=== PATIENT | male | born 1990 | race Caucasian/White ===

== ENCOUNTER 2019-04-17 06:11 | Inpatient (IN) | payer OTHER ==
[~2019-04-17] VITALS: Ht 195.6 cm; Wt 158.8 kg
[2019-04-17] MEDS ORDERED: IBUP800 PO (06:37)
[2019-04-17] MEDS ORDERED: CYCL100 PO ×2 (06:37)
[2019-04-17 08:10] LABS: BASOPHILS ABSOLUTE AUTO 0.07 K/mm3 (0.00-0.23); BASOPHILS PERCENT AUTO 0 % (0-2); EOSINOPHILS ABSOLUTE AUTO 0.21 K/mm3 (0.00-0.68); EOSINOPHILS PERCENT AUTO 1 % (0-6); Hematocrit 43.4 % (37.0-53.0); Hemoglobin 14.3 g/dL (13.5-17.5); IMMATURE GRAN ABSOLUTE AUTO 0.13 K/mm3 (0.00-0.10); IMMATURE GRAN PERCENT AUTO 1 % (0-1); LYMPHOCYTES PERCENT AUTO 9 % (21-46); MONOCYTES ABSOLUTE AUTO 1.02 K/mm3 (0.16-1.47); MONOCYTES PERCENT AUTO 6 % (4-13); Mean Corpuscular HGB Conc 32.9 g/dL (31.5-36.5); Mean Corpuscular Volume 85 fL (80-100); Mean Platelet Volume 9.4 fL (9.1-12.4); NEUTROPHILS ABSOLUTE AUTO 13.42 K/mm3 (1.96-9.15); NEUTROPHILS PERCENT AUTO 83 % (41-73); Platelet Count 414 K/mm3 (150-400); RDW Coefficient Variation 12.7 % (11.7-14.2); RDW Standard Deviation 39.4 fL (35.1-46.3); Red Blood Cell Count 5.11 M/mm3 (4.30-5.90); White Blood Cell Count 16.25 K/mm3 (4.00-11.30)
[2019-04-17 08:33] LABS: Alanine Aminotransfer (ALT/SGP 25 U/L (12-78); Albumin, Blood 3.2 g/dL (3.4-5.0); Albumin/Globulin Ratio 0.6 (0.8-1.8); Alk Phos 115 U/L (50-136); Anion Gap 8 mmol/L (6-16); Aspartate Aminotrans (AST/SGOT 15 U/L (12-37); Bilirubin, Total 0.4 mg/dL (0.1-1.0); Blood Urea Nitrogen 11 mg/dL (8-24); Bun/Creatinine Ratio 16.2 (12.0-20.0); CO2, Blood 23 mmol/L (21-32); Calcium, Blood 9.2 mg/dL (8.5-10.1); Chloride, Blood 106 mmol/L (98-108); Creatinine, Blood 0.68 mg/dL (0.60-1.20); Globulin, Blood 5.7 g/dL (2.2-4.0); Glomerular Filtration Rate >60 (60-); Glucose, Blood 116 mg/dL (70-99); Potassium, Blood 4.1 mmol/L (3.5-5.5); Sodium, Blood 137 mmol/L (136-145); Total Protein, Blood 8.9 g/dL (6.4-8.2)
--- NOTE | 2019-04-17 17:23 | NUR ---
ADMISSION/SHIFT SUMMARY PATIENT ADMITTED TO FLOOR AT 1005. PATIENT A&O X4, ABLE TO AMBULATE FROM WHEELCHAIR TO BED. HE IS IN A LOT OF PAIN WHEN WALKING OR LLE IS DOWN. PATIENT SETTLED IN BED AND LLE ELEVATED AROUND LEVEL OF HEART, PAIN IMPROVED. LLE PAIN IS THROBBING, RATED AT A 3-6 OUT OF 10 TODAY. TYLENOL AND IBUPROFEN GIVEN. PATIENT HAS NO OTHER SIGNIFICANT HISTORY OR PHYSICAL ISSUES BESIDES ADMITTING DIAGNOSIS. LOWER LEFT LEG IS CURRENTLY WRAPPED WITH PETROLEUM DRSG, ABD, AND KERLEX. THE ULCERATIONS ARE ON ALL SIDES OF THE LEG EXCEPT THE BACK. PHOTOS TAKEN AND PRINTED IN CHART.
[2019-04-18 04:55] LABS: BASOPHILS ABSOLUTE AUTO 0.05 K/mm3 (0.00-0.23); BASOPHILS PERCENT AUTO 0 % (0-2); EOSINOPHILS ABSOLUTE AUTO 0.28 K/mm3 (0.00-0.68); EOSINOPHILS PERCENT AUTO 2 % (0-6); Hematocrit 37.6 % (37.0-53.0); Hemoglobin 12.5 g/dL (13.5-17.5); IMMATURE GRAN PERCENT AUTO 1 % (0-1); LYMPHOCYTES ABSOLUTE AUTO 2.63 K/mm3 (0.84-5.20); LYMPHOCYTES PERCENT AUTO 18 % (21-46); MONOCYTES PERCENT AUTO 7 % (4-13); Mean Corpuscular HGB 28.7 pg (26.0-34.0); Mean Corpuscular HGB Conc 33.2 g/dL (31.5-36.5); Mean Corpuscular Volume 86 fL (80-100); Mean Platelet Volume 9.3 fL (9.1-12.4); NEUTROPHILS ABSOLUTE AUTO 10.26 K/mm3 (1.96-9.15); NEUTROPHILS PERCENT AUTO 72 % (41-73); Platelet Count 357 K/mm3 (150-400); RDW Coefficient Variation 12.7 % (11.7-14.2); RDW Standard Deviation 40.3 fL (35.1-46.3); Red Blood Cell Count 4.36 M/mm3 (4.30-5.90); White Blood Cell Count 14.32 K/mm3 (4.00-11.30)
[2019-04-18 05:18] LABS: Alanine Aminotransfer (ALT/SGP 30 U/L (12-78); Albumin, Blood 2.6 g/dL (3.4-5.0); Albumin/Globulin Ratio 0.6 (0.8-1.8); Alk Phos 92 U/L (50-136); Anion Gap 8 mmol/L (6-16); Aspartate Aminotrans (AST/SGOT 17 U/L (12-37); Bilirubin, Total 0.4 mg/dL (0.1-1.0); Blood Urea Nitrogen 10 mg/dL (8-24); Bun/Creatinine Ratio 14.3 (12.0-20.0); CO2, Blood 24 mmol/L (21-32); Calcium, Blood 8.6 mg/dL (8.5-10.1); Chloride, Blood 107 mmol/L (98-108); Globulin, Blood 4.6 g/dL (2.2-4.0); Glomerular Filtration Rate >60 (60-); Glucose, Blood 108 mg/dL (70-99); Potassium, Blood 3.9 mmol/L (3.5-5.5); Sodium, Blood 139 mmol/L (136-145); Total Protein, Blood 7.2 g/dL (6.4-8.2)
--- NOTE | 2019-04-18 05:35 | NUR ---
SUMMARY: A/OX4, SBA OOB BUT USED URINAL INDEPENDENTLY AND WASN'T UP THIS SHIFT. HE REPOSITIONS HIMSELF AND SPECIFIES NEEDS. PT REQUIRED IBUPROFEN X2 DOSES FOR TOLERABLE RELIEF OF LLE PAIN AND REFUSED ADDITIONAL PRN PAIN MEDS. 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 STEROIDS AND IV ABX BEING RECIEVED. VERY SCANT AMT OF DRAINAGE NOTED BUT DAILY DX DUE TO BE CHANGED TODAY AND PT REQUESTED IT BE LEFT ALONE TONIGHT, UNABLE TO COLLECT WOUND CX RESULT. DERMATOLOGY CX NEEDS CALLED TODAY, WILL ENSURE DAY STAFF ARE AWARE. IVF BOLUS COMPLETED AND NOW RUNNING AT TK. NO ACUTE CHANGES, VSS/AFEBRILE. WCTM/REPORT TO DAY RN.
--- NOTE | 2019-04-18 10:34 | NUR ---
SPOKE WITH DERMATOLOGY OFFICE, DR SANTIAGO AGREED TO COME IN AND CONSULT PATIENT.
[2019-04-18] MEDS ORDERED: ACET325 PO (15:56)
[2019-04-18] MEDS ORDERED: LISI20 PO (15:57)
[2019-04-18] MEDS ORDERED: Florastor250 MG PO (15:59)
[2019-04-18] MEDS ORDERED: Prednisone10 MG PO (15:59)
[2019-04-18] MEDS ORDERED: DOXY100 PO (16:00)
--- NOTE | 2019-04-18 17:54 | NUR ---
PT DISCHARGED HOME, LEFT UNIT VIA WHEELCHAIR. WENT OVER DISCHARGE INSTRUCTIONS. REMOVED IV. NO QUESTIONS AT THIS TIME.
== END 2019-04-18 16:29 | disposition home or self-care (01) | DRG 603 ==
LOC: ER 06:11 → MEDS 09:59 → ENPENDDIS 04-18 15:21 → MEDS 04-18 16:29
PROVIDERS: Emergency Medicine; ADMIT Family Medicine
DX: L88 Pyoderma gangrenosum (principal); R65.10 Systemic inflammatory response syndrome (SIRS) of non-infectious origin without acute organ dysfunction; Z68.41 Body mass index [BMI] 40.0-44.9, adult; E66.01 Morbid (severe) obesity due to excess calories; I10 Essential (primary) hypertension; I87.2 Venous insufficiency (chronic) (peripheral); F17.210 Nicotine dependence, cigarettes, uncomplicated; Z91.14 Patient's other noncompliance with medication regimen; Z86.14 Personal history of Methicillin resistant Staphylococcus aureus infection
CPT/HCPCS: 36415; 80053; 83605; 85025; 87070; 87075; 87077; 87147; 87186; 87205; 90686; 96365; 96367; 99284-25; A9270; J0690; J1650; J7030; J7050; J7502; J7512

== ENCOUNTER → 2020-05-21 | Outpatient (CLI) | payer OTHER ==
[~2020-05-21] MED LIST: ACET325 PO; CYCL100 PO; DOXY100 PO; Florastor250 MG PO; IBUP800 PO; LISI20 PO; Prednisone10 MG PO
== END | disposition home or self-care (01) ==
LOC: LAB 17:22 → LAB SHORT 17:22
DX: L08.0 Pyoderma (principal)
CPT/HCPCS: 87070; 87075; 87205

== ENCOUNTER → 2020-12-03 | Outpatient (CLI) | payer SELFPAY | END | disposition home or self-care (01) | LOC: PLD 18:21 → LAB SHORT 18:21 | DX: L88 Pyoderma gangrenosum (principal) | CPT/HCPCS: 87070; 87205 ==

== ENCOUNTER → 2021-03-10 | Outpatient (CLI) | payer SELFPAY | END | disposition home or self-care (01) | LOC: LAB SHORT 14:30 | DX: L08.0 Pyoderma (principal) | CPT/HCPCS: 87070; 87205 ==

== ENCOUNTER 2021-08-26 00:28 | Day surgery (SDC) | payer OTHER | END 2021-08-26 11:21 | disposition home or self-care (01) | LOC: ATC 00:28 | DX: L73.2 Hidradenitis suppurativa (principal) | CPT/HCPCS: J7050; Q5103 ==

== ENCOUNTER 2021-09-09 04:48 | Day surgery (SDC) | payer OTHER ==
[2021-09-09] MEDS ORDERED: INFLECTRA100 MG IV (13:52)
== END 2021-09-09 16:22 | disposition home or self-care (01) ==
LOC: ATC 04:48
DX: L73.2 Hidradenitis suppurativa (principal)
CPT/HCPCS: 96413; 96415; J7050; Q5103

== ENCOUNTER 2021-11-25 02:02 | Day surgery (SDC) | payer OTHER ==
[~2021-11-25] VITALS: Wt 142.0 kg
[~2021-11-25 02:02] MED LIST changes: +INFLECTRA100 MG IV
== END 2021-11-25 16:45 | disposition home or self-care (01) ==
LOC: ATC 02:02
DX: L73.2 Hidradenitis suppurativa (principal); L88 Pyoderma gangrenosum
CPT/HCPCS: 96413; 96415; J7050; Q5103

== ENCOUNTER 2022-01-27 00:58 | Day surgery (SDC) | payer OTHER ==
[~2022-01-27] VITALS: Wt 144.0 kg
== END 2022-01-27 16:45 | disposition home or self-care (01) ==
LOC: ATC 00:58
DX: L73.2 Hidradenitis suppurativa (principal)
CPT/HCPCS: 96413; 96415; J7050; Q5103

== ENCOUNTER 2022-04-02 00:11 | Day surgery (SDC) | payer OTHER ==
[~2022-04-02] VITALS: Wt 142.9 kg
== END 2022-04-02 16:04 | disposition home or self-care (01) ==
LOC: ATC 00:11
DX: L88 Pyoderma gangrenosum (principal)
CPT/HCPCS: J7050; Q5103

== ENCOUNTER 2022-08-14 00:18 | Day surgery (SDC) | payer OTHER ==
--- NOTE | 2022-08-10 08:30 | NUR ---
PT CALLED THIS MORNING AND CANCELLED HIS [facility] APPOINTMENT FOR TODAY.
[2022-08-14 14:43] LABS: BASOPHILS ABSOLUTE AUTO 0.06 K/mm3 (0.00-0.23); BASOPHILS PERCENT AUTO 1 % (0-2); EOSINOPHILS ABSOLUTE AUTO 0.48 K/mm3 (0.00-0.68); EOSINOPHILS PERCENT AUTO 5 % (0-6); Hematocrit 44.6 % (37.0-53.0); Hemoglobin 15.4 g/dL (13.5-17.5); IMMATURE GRAN ABSOLUTE AUTO 0.03 K/mm3 (0.00-0.10); IMMATURE GRAN PERCENT AUTO 0 % (0-1); LYMPHOCYTES ABSOLUTE AUTO 2.23 K/mm3 (0.84-5.20); LYMPHOCYTES PERCENT AUTO 23 % (21-46); MONOCYTES ABSOLUTE AUTO 1.01 K/mm3 (0.16-1.47); MONOCYTES PERCENT AUTO 10 % (4-13); Mean Corpuscular HGB 29.4 pg (26.0-34.0); Mean Corpuscular HGB Conc 34.5 g/dL (31.5-36.5); Mean Corpuscular Volume 85 fL (80-100); Mean Platelet Volume 9.4 fL (9.1-12.4); NEUTROPHILS ABSOLUTE AUTO 6.02 K/mm3 (1.96-9.15); NEUTROPHILS PERCENT AUTO 61 % (41-73); Platelet Count 280 K/mm3 (150-400); RDW Coefficient Variation 12.8 % (11.7-14.2); RDW Standard Deviation 39.8 fL (35.1-46.3); Red Blood Cell Count 5.23 M/mm3 (4.30-5.90); White Blood Cell Count 9.83 K/mm3 (4.00-11.30)
[2022-08-14 15:02] LABS: Albumin, Blood 3.4 g/dL (3.4-5.0); Albumin/Globulin Ratio 0.7 (0.8-1.8); Bilirubin, Total 0.2 mg/dL (0.1-1.0); Bun/Creatinine Ratio 28.8 (12.0-20.0); Calcium, Blood 9.1 mg/dL (8.5-10.1); Creatinine, Blood 0.66 mg/dL (0.60-1.20); Globulin, Blood 4.6 g/dL (2.2-4.0); Potassium, Blood 4.1 mmol/L (3.5-5.5)
== END 2022-08-14 16:50 | disposition home or self-care (01) ==
LOC: ATC 00:18
PROVIDERS: Dermatology
DX: L88 Pyoderma gangrenosum (principal)
CPT/HCPCS: 80053; 85025; J7050; Q5103

== ENCOUNTER 2022-10-09 01:16 | Day surgery (SDC) | payer OTHER ==
[2022-10-09 13:43] VITALS: BP 140/86
[2022-10-09 14:53] LABS: BASOPHILS ABSOLUTE AUTO 0.05 K/mm3 (0.00-0.23); BASOPHILS PERCENT AUTO 0 % (0-2); EOSINOPHILS PERCENT AUTO 3 % (0-6); Hematocrit 42.6 % (37.0-53.0); Hemoglobin 14.6 g/dL (13.5-17.5); IMMATURE GRAN ABSOLUTE AUTO 0.03 K/mm3 (0.00-0.10); IMMATURE GRAN PERCENT AUTO 0 % (0-1); LYMPHOCYTES ABSOLUTE AUTO 2.93 K/mm3 (0.84-5.20); LYMPHOCYTES PERCENT AUTO 26 % (21-46); MONOCYTES ABSOLUTE AUTO 0.81 K/mm3 (0.16-1.47); MONOCYTES PERCENT AUTO 7 % (4-13); Mean Corpuscular HGB 28.8 pg (26.0-34.0); Mean Corpuscular HGB Conc 34.3 g/dL (31.5-36.5); Mean Corpuscular Volume 84 fL (80-100); Mean Platelet Volume 9.8 fL (9.1-12.4); NEUTROPHILS ABSOLUTE AUTO 7.33 K/mm3 (1.96-9.15); NEUTROPHILS PERCENT AUTO 64 % (41-73); Platelet Count 272 K/mm3 (150-400); RDW Coefficient Variation 12.7 % (11.7-14.2); RDW Standard Deviation 38.5 fL (35.1-46.3); Red Blood Cell Count 5.07 M/mm3 (4.30-5.90); White Blood Cell Count 11.45 K/mm3 (4.00-11.30)
[2022-10-09 15:32] LABS: Albumin, Blood 3.9 g/dL (3.4-5.0); Albumin/Globulin Ratio 0.9 (0.8-1.8); Bilirubin, Total 0.6 mg/dL (0.1-1.0); Bun/Creatinine Ratio 15.4 (12.0-20.0); Calcium, Blood 9.1 mg/dL (8.5-10.1); Creatinine, Blood 0.71 mg/dL (0.60-1.20); Globulin, Blood 4.3 g/dL (2.2-4.0); Potassium, Blood 3.7 mmol/L (3.5-5.5); Total Protein, Blood 8.2 g/dL (6.4-8.2)
== END 2022-10-09 16:52 | disposition home or self-care (01) ==
LOC: ATC 01:16
PROVIDERS: Dermatology
DX: L88 Pyoderma gangrenosum (principal)
CPT/HCPCS: 80053; 85025; 96413; 96415; J7050; Q5103

== ENCOUNTER 2022-12-09 03:06 | Day surgery (SDC) | payer OTHER ==
[2022-12-09 08:20] VITALS: BP 152/92
[2022-12-09 09:05] LABS: BASOPHILS ABSOLUTE AUTO 0.04 K/mm3 (0.00-0.23); BASOPHILS PERCENT AUTO 1 % (0-2); EOSINOPHILS ABSOLUTE AUTO 0.36 K/mm3 (0.00-0.68); EOSINOPHILS PERCENT AUTO 4 % (0-6); Hematocrit 42.1 % (37.0-53.0); Hemoglobin 14.8 g/dL (13.5-17.5); IMMATURE GRAN ABSOLUTE AUTO 0.03 K/mm3 (0.00-0.10); IMMATURE GRAN PERCENT AUTO 0 % (0-1); LYMPHOCYTES ABSOLUTE AUTO 2.89 K/mm3 (0.84-5.20); LYMPHOCYTES PERCENT AUTO 33 % (21-46); MONOCYTES ABSOLUTE AUTO 0.58 K/mm3 (0.16-1.47); MONOCYTES PERCENT AUTO 7 % (4-13); Mean Corpuscular HGB 29.6 pg (26.0-34.0); Mean Corpuscular HGB Conc 35.2 g/dL (31.5-36.5); Mean Corpuscular Volume 84 fL (80-100); Mean Platelet Volume 9.5 fL (9.1-12.4); NEUTROPHILS ABSOLUTE AUTO 4.79 K/mm3 (1.96-9.15); NEUTROPHILS PERCENT AUTO 55 % (41-73); Platelet Count 268 K/mm3 (150-400); RDW Coefficient Variation 12.4 % (11.7-14.2); RDW Standard Deviation 37.7 fL (35.1-46.3); White Blood Cell Count 8.69 K/mm3 (4.00-11.30)
[2022-12-09 09:26] LABS: Albumin, Blood 3.6 g/dL (3.4-5.0); Albumin/Globulin Ratio 0.8 (0.8-1.8); Bilirubin, Total 0.4 mg/dL (0.1-1.0); Calcium, Blood 8.8 mg/dL (8.5-10.1); Creatinine, Blood 0.68 mg/dL (0.60-1.20); Globulin, Blood 4.3 g/dL (2.2-4.0); Potassium, Blood 4.1 mmol/L (3.5-5.5); Total Protein, Blood 7.9 g/dL (6.4-8.2)
== END 2022-12-09 11:11 | disposition home or self-care (01) ==
LOC: ATC 03:06
PROVIDERS: Dermatology
DX: L88 Pyoderma gangrenosum (principal)
CPT/HCPCS: 80053; 85025; 96413; 96415; J7050; Q5103

== ENCOUNTER 2023-02-17 02:31 | Day surgery (SDC) | payer OTHER ==
[2023-02-17 14:04] VITALS: BP 160/90
[2023-02-17 14:32] LABS: BASOPHILS ABSOLUTE AUTO 0.05 K/mm3 (0.00-0.23); BASOPHILS PERCENT AUTO 0 % (0-2); EOSINOPHILS ABSOLUTE AUTO 0.34 K/mm3 (0.00-0.68); EOSINOPHILS PERCENT AUTO 3 % (0-6); Hematocrit 42.3 % (37.0-53.0); Hemoglobin 14.7 g/dL (13.5-17.5); IMMATURE GRAN ABSOLUTE AUTO 0.05 K/mm3 (0.00-0.10); IMMATURE GRAN PERCENT AUTO 0 % (0-1); LYMPHOCYTES ABSOLUTE AUTO 2.16 K/mm3 (0.84-5.20); LYMPHOCYTES PERCENT AUTO 18 % (21-46); MONOCYTES ABSOLUTE AUTO 0.74 K/mm3 (0.16-1.47); MONOCYTES PERCENT AUTO 6 % (4-13); Mean Corpuscular HGB 29.6 pg (26.0-34.0); Mean Corpuscular HGB Conc 34.8 g/dL (31.5-36.5); Mean Corpuscular Volume 85 fL (80-100); NEUTROPHILS ABSOLUTE AUTO 8.72 K/mm3 (1.96-9.15); NEUTROPHILS PERCENT AUTO 72 % (41-73); Platelet Count 304 K/mm3 (150-400); RDW Coefficient Variation 12.8 % (11.7-14.2); RDW Standard Deviation 39.6 fL (35.1-46.3); Red Blood Cell Count 4.97 M/mm3 (4.30-5.90); White Blood Cell Count 12.06 K/mm3 (4.00-11.30)
[2023-02-17 15:15] LABS: Albumin, Blood 3.2 g/dL (3.4-5.0); Albumin/Globulin Ratio 0.8 (0.8-1.8); Bilirubin, Total 0.3 mg/dL (0.1-1.0); Bun/Creatinine Ratio 19.7 (12.0-20.0); Calcium, Blood 8.6 mg/dL (8.5-10.1); Creatinine, Blood 0.71 mg/dL (0.60-1.20); Globulin, Blood 4.2 g/dL (2.2-4.0); Potassium, Blood 3.9 mmol/L (3.5-5.5); Total Protein, Blood 7.4 g/dL (6.4-8.2)
== END 2023-02-17 16:50 | disposition home or self-care (01) ==
LOC: ATC 02:31
PROVIDERS: Dermatology
DX: L88 Pyoderma gangrenosum (principal)
CPT/HCPCS: 80053; 85025; 96413; 96415; J7050; Q5103

== ENCOUNTER 2023-04-15 03:18 | Day surgery (SDC) | payer OTHER ==
[2023-04-15 13:39] VITALS: BP 149/85
[2023-04-15 13:48] VITALS: BP 149/85
[2023-04-15 14:11] LABS: BASOPHILS ABSOLUTE AUTO 0.06 K/mm3 (0.00-0.23); BASOPHILS PERCENT AUTO 1 % (0-2); EOSINOPHILS ABSOLUTE AUTO 0.32 K/mm3 (0.00-0.68); EOSINOPHILS PERCENT AUTO 3 % (0-6); Hematocrit 44.3 % (37.0-53.0); IMMATURE GRAN ABSOLUTE AUTO 0.04 K/mm3 (0.00-0.10); IMMATURE GRAN PERCENT AUTO 0 % (0-1); LYMPHOCYTES PERCENT AUTO 27 % (21-46); MONOCYTES ABSOLUTE AUTO 0.73 K/mm3 (0.16-1.47); MONOCYTES PERCENT AUTO 8 % (4-13); Mean Corpuscular HGB 29.1 pg (26.0-34.0); Mean Corpuscular HGB Conc 33.9 g/dL (31.5-36.5); Mean Corpuscular Volume 86 fL (80-100); Mean Platelet Volume 9.6 fL (9.1-12.4); NEUTROPHILS ABSOLUTE AUTO 5.83 K/mm3 (1.96-9.15); NEUTROPHILS PERCENT AUTO 61 % (41-73); Platelet Count 273 K/mm3 (150-400); RDW Coefficient Variation 12.6 % (11.7-14.2); RDW Standard Deviation 39.7 fL (35.1-46.3); Red Blood Cell Count 5.15 M/mm3 (4.30-5.90); White Blood Cell Count 9.58 K/mm3 (4.00-11.30)
[2023-04-15 14:30] LABS: Albumin, Blood 3.5 g/dL (3.4-5.0); Albumin/Globulin Ratio 0.8 (0.8-1.8); Bilirubin, Total 0.3 mg/dL (0.1-1.0); Bun/Creatinine Ratio 13.5 (12.0-20.0); Calcium, Blood 8.7 mg/dL (8.5-10.1); Creatinine, Blood 0.74 mg/dL (0.60-1.20); Globulin, Blood 4.5 g/dL (2.2-4.0)
== END 2023-04-15 16:11 | disposition home or self-care (01) ==
LOC: ATC 03:18
PROVIDERS: Dermatology
DX: L88 Pyoderma gangrenosum (principal); Z80.0 Family history of malignant neoplasm of digestive organs
CPT/HCPCS: 36415; 80053; 85025; 96413; 96415; J7050; Q5103

== ENCOUNTER 2023-07-06 00:30 | Day surgery (SDC) | payer OTHER ==
[2023-07-06 15:35] VITALS: BP 152/88
[2023-07-06 16:16] LABS: BASOPHILS ABSOLUTE AUTO 0.05 K/mm3 (0.00-0.23); BASOPHILS PERCENT AUTO 0 % (0-2); EOSINOPHILS ABSOLUTE AUTO 0.47 K/mm3 (0.00-0.68); EOSINOPHILS PERCENT AUTO 4 % (0-6); Hematocrit 40.1 % (37.0-53.0); Hemoglobin 13.9 g/dL (13.5-17.5); IMMATURE GRAN ABSOLUTE AUTO 0.07 K/mm3 (0.00-0.10); IMMATURE GRAN PERCENT AUTO 1 % (0-1); LYMPHOCYTES ABSOLUTE AUTO 2.49 K/mm3 (0.84-5.20); LYMPHOCYTES PERCENT AUTO 19 % (21-46); MONOCYTES ABSOLUTE AUTO 0.88 K/mm3 (0.16-1.47); MONOCYTES PERCENT AUTO 7 % (4-13); Mean Corpuscular HGB 29.3 pg (26.0-34.0); Mean Corpuscular HGB Conc 34.7 g/dL (31.5-36.5); Mean Corpuscular Volume 85 fL (80-100); Mean Platelet Volume 9.2 fL (9.1-12.4); NEUTROPHILS ABSOLUTE AUTO 8.99 K/mm3 (1.96-9.15); NEUTROPHILS PERCENT AUTO 70 % (41-73); Platelet Count 292 K/mm3 (150-400); RDW Coefficient Variation 12.5 % (11.7-14.2); RDW Standard Deviation 38.7 fL (35.1-46.3); Red Blood Cell Count 4.74 M/mm3 (4.30-5.90); White Blood Cell Count 12.95 K/mm3 (4.00-11.30)
[2023-07-06 16:45] LABS: Albumin, Blood 3.2 g/dL (3.4-5.0); Albumin/Globulin Ratio 0.7 (0.8-1.8); Bilirubin, Total 0.2 mg/dL (0.1-1.0); Bun/Creatinine Ratio 16.9 (12.0-20.0); Calcium, Blood 8.6 mg/dL (8.5-10.1); Creatinine, Blood 0.65 mg/dL (0.60-1.20); Globulin, Blood 4.5 g/dL (2.2-4.0); Potassium, Blood 3.6 mmol/L (3.5-5.5); Total Protein, Blood 7.7 g/dL (6.4-8.2)
== END 2023-07-06 18:05 | disposition home or self-care (01) ==
LOC: ATC 00:30
PROVIDERS: Dermatology
DX: L88 Pyoderma gangrenosum (principal)
CPT/HCPCS: 80053; 85025; 96413; 96415; J7050; Q5103

== ENCOUNTER 2023-11-02 00:46 | Day surgery (SDC) | payer OTHER ==
[2023-11-02 13:46] VITALS: BP 156/95
== END 2023-11-02 16:20 | disposition home or self-care (01) ==
LOC: ATC 00:46
DX: L88 Pyoderma gangrenosum (principal); Z79.899 Other long term (current) drug therapy

== ENCOUNTER 2024-04-05 04:41 | Day surgery (SDC) | payer OTHER ==
[2024-04-05] MEDS ORDERED: INFLIXIMAB DYYB IV SCH (06:00)
[2024-04-05] MEDS ORDERED: NS IV SCH (06:00)
[2024-04-05 14:03] VITALS: BP 174/90
[2024-04-05 15:30] LABS: Albumin, Blood 2.9 g/dL (3.4-5.0); Albumin/Globulin Ratio 0.5 (0.8-1.8); Bilirubin, Total 0.3 mg/dL (0.1-1.0); Bun/Creatinine Ratio 16.6 (12.0-20.0); Calcium, Blood 9.1 mg/dL (8.5-10.1); Creatinine, Blood 0.6 mg/dL (0.60-1.20); Globulin, Blood 5.4 g/dL (2.2-4.0); Total Protein, Blood 8.3 g/dL (6.4-8.2)
[2024-04-05 16:54] LABS: BASOPHILS ABSOLUTE AUTO 0.06 K/mm3 (0.00-0.23); BASOPHILS PERCENT AUTO 0 % (0-2); EOSINOPHILS ABSOLUTE AUTO 0.41 K/mm3 (0.00-0.68); EOSINOPHILS PERCENT AUTO 2 % (0-6); Hematocrit 40.1 % (37.0-53.0); Hemoglobin 13.7 g/dL (13.5-17.5); IMMATURE GRAN ABSOLUTE AUTO 0.12 K/mm3 (0.00-0.10); IMMATURE GRAN PERCENT AUTO 1 % (0-1); LYMPHOCYTES PERCENT AUTO 12 % (21-46); MONOCYTES ABSOLUTE AUTO 1.26 K/mm3 (0.16-1.47); MONOCYTES PERCENT AUTO 7 % (4-13); Mean Corpuscular HGB 28.4 pg (26.0-34.0); Mean Corpuscular HGB Conc 34.2 g/dL (31.5-36.5); Mean Corpuscular Volume 83 fL (80-100); Mean Platelet Volume 9.1 fL (9.1-12.4); NEUTROPHILS ABSOLUTE AUTO 13.47 K/mm3 (1.96-9.15); NEUTROPHILS PERCENT AUTO 78 % (41-73); Platelet Count 393 K/mm3 (150-400); RDW Coefficient Variation 12.8 % (11.7-14.2); RDW Standard Deviation 38.9 fL (35.1-46.3); Red Blood Cell Count 4.83 M/mm3 (4.30-5.90); White Blood Cell Count 17.32 K/mm3 (4.00-11.30)
== END 2024-04-05 16:48 | disposition home or self-care (01) ==
LOC: ATC 04:41
PROVIDERS: Dermatology
DX: L88 Pyoderma gangrenosum (principal); Z79.2 Long term (current) use of antibiotics
CPT/HCPCS: 80053; 85025; 96413; 96415; J7050; Q5103

== ENCOUNTER 2024-05-31 03:46 | Day surgery (SDC) | payer OTHER ==
[2024-05-31] MEDS ORDERED: NS IV SCH (06:00)
[2024-05-31] MEDS ORDERED: INFLIXIMAB DYYB IV SCH (06:00)
[2024-05-31 14:15] VITALS: BP 136/85
[2024-05-31 14:32] LABS: BASOPHILS ABSOLUTE AUTO 0.05 K/mm3 (0.00-0.23); BASOPHILS PERCENT AUTO 0 % (0-2); EOSINOPHILS ABSOLUTE AUTO 0.33 K/mm3 (0.00-0.68); EOSINOPHILS PERCENT AUTO 2 % (0-6); Hematocrit 41.3 % (37.0-53.0); Hemoglobin 14.3 g/dL (13.5-17.5); IMMATURE GRAN ABSOLUTE AUTO 0.06 K/mm3 (0.00-0.10); IMMATURE GRAN PERCENT AUTO 0 % (0-1); LYMPHOCYTES ABSOLUTE AUTO 1.95 K/mm3 (0.84-5.20); LYMPHOCYTES PERCENT AUTO 14 % (21-46); MONOCYTES ABSOLUTE AUTO 0.83 K/mm3 (0.16-1.47); MONOCYTES PERCENT AUTO 6 % (4-13); Mean Corpuscular HGB 28.7 pg (26.0-34.0); Mean Corpuscular HGB Conc 34.6 g/dL (31.5-36.5); Mean Corpuscular Volume 83 fL (80-100); Mean Platelet Volume 9.3 fL (9.1-12.4); NEUTROPHILS ABSOLUTE AUTO 10.56 K/mm3 (1.96-9.15); NEUTROPHILS PERCENT AUTO 77 % (41-73); Platelet Count 326 K/mm3 (150-400); RDW Coefficient Variation 12.9 % (11.7-14.2); RDW Standard Deviation 38.9 fL (35.1-46.3); Red Blood Cell Count 4.99 M/mm3 (4.30-5.90); White Blood Cell Count 13.78 K/mm3 (4.00-11.30)
[2024-05-31 14:51] LABS: Albumin, Blood 3.3 g/dL (3.4-5.0); Albumin/Globulin Ratio 0.6 (0.8-1.8); Bilirubin, Total 0.5 mg/dL (0.1-1.0); Bun/Creatinine Ratio 15.3 (12.0-20.0); Creatinine, Blood 0.65 mg/dL (0.60-1.20); Globulin, Blood 5.2 g/dL (2.2-4.0); Potassium, Blood 4.2 mmol/L (3.5-5.5); Total Protein, Blood 8.5 g/dL (6.4-8.2)
== END 2024-05-31 17:00 | disposition home or self-care (01) ==
LOC: ATC 03:46
PROVIDERS: Dermatology
DX: L88 Pyoderma gangrenosum (principal)
CPT/HCPCS: 80053; 85025; 96413; 96415; J7050; Q5103

== ENCOUNTER 2024-07-24 02:51 | Day surgery (SDC) | payer OTHER ==
[~2024-07-24] VITALS: Wt 159.3 kg
[~2024-07-24 02:51] MED LIST changes: +INFLIXIMAB DYYB IV SCH; +NS IV SCH
[2024-07-24] MEDS ORDERED: DiphenhydrAMINE HCl 50 MG/ML 1ML Vial IV PRN (07:00)
[2024-07-24 07:35] VITALS: BP 140/80
[2024-07-24 08:22] LABS: BASOPHILS ABSOLUTE AUTO 0.05 K/mm3 (0.00-0.23); BASOPHILS PERCENT AUTO 1 % (0-2); EOSINOPHILS ABSOLUTE AUTO 0.28 K/mm3 (0.00-0.68); EOSINOPHILS PERCENT AUTO 3 % (0-6); Hematocrit 40.8 % (37.0-53.0); Hemoglobin 13.8 g/dL (13.5-17.5); IMMATURE GRAN ABSOLUTE AUTO 0.03 K/mm3 (0.00-0.10); IMMATURE GRAN PERCENT AUTO 0 % (0-1); LYMPHOCYTES ABSOLUTE AUTO 2.11 K/mm3 (0.84-5.20); LYMPHOCYTES PERCENT AUTO 24 % (21-46); MONOCYTES ABSOLUTE AUTO 0.67 K/mm3 (0.16-1.47); MONOCYTES PERCENT AUTO 8 % (4-13); Mean Corpuscular HGB 28.7 pg (26.0-34.0); Mean Corpuscular HGB Conc 33.8 g/dL (31.5-36.5); Mean Corpuscular Volume 85 fL (80-100); Mean Platelet Volume 9.3 fL (9.1-12.4); NEUTROPHILS ABSOLUTE AUTO 5.84 K/mm3 (1.96-9.15); NEUTROPHILS PERCENT AUTO 65 % (41-73); Platelet Count 286 K/mm3 (150-400); RDW Coefficient Variation 13.1 % (11.7-14.2); RDW Standard Deviation 40.7 fL (35.1-46.3); Red Blood Cell Count 4.81 M/mm3 (4.30-5.90); White Blood Cell Count 8.98 K/mm3 (4.00-11.30)
[2024-07-24 08:44] LABS: Albumin, Blood 3.2 g/dL (3.4-5.0); Albumin/Globulin Ratio 0.7 (0.8-1.8); Bilirubin, Total 0.2 mg/dL (0.1-1.0); Bun/Creatinine Ratio 23.4 (12.0-20.0); Calcium, Blood 8.9 mg/dL (8.5-10.1); Creatinine, Blood 0.68 mg/dL (0.60-1.20); Globulin, Blood 4.6 g/dL (2.2-4.0); Total Protein, Blood 7.8 g/dL (6.4-8.2)
== END 2024-07-24 10:25 | disposition home or self-care (01) ==
LOC: ATC 02:51
PROVIDERS: Dermatology
DX: L88 Pyoderma gangrenosum (principal)
CPT/HCPCS: 80053; 85025; 96413; 96415; J7050; Q5103